=== PATIENT | male | born 1955 | race Caucasian/White ===

== ENCOUNTER 2016-09-30 15:42 | Emergency (ER) | payer OTHER ==
[~2016-09-30] VITALS: Ht 190.5 cm; Wt 88.5 kg
[2016-09-30 15:48] VITALS: BP 156/77; PULSE 88; RESP 14; TEMP 97.9; O2SAT 95
[2016-09-30 15:49] VITALS: BP 156/87
[2016-09-30 16:08] VITALS: BP 131/74; PULSE 80; RESP 18; O2SAT 97
--- NOTE | 2016-09-30 16:24 | PD ---
HPI Chief Complaint: Hypertension Time Seen by Provider: 16:23 Travel History International Travel<30 days: No Contact w/Intl Traveler<30days: No Traveled to known affect area: No History of Present Illness HPI 61-year-old male presents to the emergency Department with complaint of multiple high blood pressure readings over the past 3 days. He has history of her blood pressure readings for the past 3 months. He is here from [place] and his primary care doctor told him to keep track of his blood pressures while he was gone for 3 weeks. He called his primary care today with blood pressure readings and his primary care told him to come to the ER. The patient denies symptoms; he denies headache, chest pain, shortness of breath, abdominal pain, nausea, vomiting, or palpitations, diaphoresis, confusion, syncope, change in vision. 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 He reports feeling flushing in his face at times but very occasionally. He does not take medications for hypertension currently. He has a lot of stress in his life and chronic low back pain that he is having surgery for when he gets back home. He denies significant past medical history. No known allergies. Primary care provider is in [place]. No other modifying factors or associated signs and symptoms. History Past Medical Histgory Hx Cancer: Yes (BASAL CELL CARCINOMA) Social History Alcohol Use: Yes (COUPLE DRINKS EVERY EVENING) Tobacco Use: No Allergies-Medications (Allergen,Severity, Reaction): Coded Allergies: No Known Allergies (Unverified , 09/30/16) Reported Meds & Prescriptions Reported Meds & Active Scripts Active No Active Prescriptions or Reported Medications Review of Systems Except as stated in HPI: all other systems reviewed are Neg Physical Exam Narrative GENERAL: Well-nourished, well-developed male patient, in no acute distress SKIN: Warm and dry. HEAD: Atraumatic. Normocephalic. EYES: Pupils equal and round. No injection or drainage. ENT: Mucosa pink and moist. Airway patent. NECK: Trachea midline. CARDIOVASCULAR: Regular rate and rhythm. No murmur appreciated. RESPIRATORY: No accessory muscle use. Clear to auscultation. Breath sounds equal bilaterally. GASTROINTESTINAL: Abdomen soft, non-tender, nondistended. Hepatic and splenic margins not palpable. Bowel sounds are active 4 quadrants. MUSCULOSKELETAL: No obvious deformities. No clubbing. No cyanosis. No edema. NEUROLOGICAL: Awake and alert. Oriented 3. No obvious cranial nerve deficits. Motor grossly within normal limits. Normal speech. PSYCHIATRIC: Appropriate mood and affect; insight and judgment normal. Data Data Last Documented VS Vital Signs Date Time Temp Pulse Resp B/P Pulse Ox O2 Delivery O2 Flow Rate FiO2 09/30/16 16:08 80 18 131/74 97 Room Air 09/30/16 15:48 97.9 MDM Medical Screen Exam Complete: Yes Emergency Medical Condition: No Differential Diagnosis High blood pressure, essential hypertension, stress, pain Narrative Course 61-year-old male here for evaluation of high blood pressure readings for the past 3 days. His primary care providers in the [place] and he was told to come to the ER for evaluation. He has been having high blood pressure readings for the past 3 months. He is a symptom that I can denies symptoms other than flushing in his face every now and then. He has no symptoms at this time. Blood Pressure recheck in the ER is 131/74. Instructed patient to continue blood pressure readings and log his blood pressures for his primary care provider. Discussed reasons to return to the emergency department and the patient verbalized understanding and agreement. Vital signs are stable and the patient is stable for outpatient follow-up and treatment. The patient has no urgent or emergent medical complaints. There is no emergent or urgent medical need at this time. I instructed the patient to follow up with their primary care provider. A medical screening exam was performed: At the time of evaluation the presenting medical condition was determined not to be of an emergent nature. The patient was given the option of receiving additional care, but declined. Patient was given options for additional community resources from which to obtain care. The Patient Has Been advised to seek medical attention for their presenting complaint. The patient has been advised to return to the ER at any time if an emergent condition develops. Primary Impression: Encounter for medical screening examination Scripts No Active Prescriptions or Reported Meds Condition: Stable Pearl Aguillon Sep 30, 2016 16:24
== END 2016-09-30 16:40 | disposition left against medical advice (07) ==
LOC: NEPB 15:42
DX: R03.0 Elevated blood-pressure reading, without diagnosis of hypertension (principal); R23.2 Flushing; M54.5 Low back pain; G89.29 Other chronic pain; Z85.828 Personal history of other malignant neoplasm of skin
CPT/HCPCS: 99281